=== PATIENT | female | born 1985 | race American Indian/Alaskan Native ===

== ENCOUNTER 2018-03-21 12:17 | Emergency (ER) | payer MEDICAID ==
[~2018-03-21] VITALS: Ht 157.5 cm; Wt 84.8 kg
[2018-03-21] MEDS ORDERED: KEFLEX500 MG PO (16:26)
[2018-03-21] MEDS ORDERED: ONDANSETRON ODT8 MG PO (16:26)
== END 2018-03-21 16:49 | disposition home or self-care (01) ==
LOC: ED 12:17
DX: N39.0 Urinary tract infection, site not specified (principal); F17.200 Nicotine dependence, unspecified, uncomplicated
CPT/HCPCS: 80053; 81001; 83605; 85025; 96361; 96374; 96375; 99283; J0696; J2405; J7030